=== PATIENT | female | born 1950 | race Caucasian/White ===

== ENCOUNTER → 2022-04-27 | Day surgery (SDC) | payer MEDICARE, OTHER ==
[~2022-04-27] MED LIST: ARIMIDEX1 MG PO; ATORVASTATIN CA20 MG PO; BALANCED SALT SOLN (OPTH) 15 ML BTL IO ONE; BUPROPION HCL100 MG PO; CELEBREX200 MG PO; LANSOPRAZOLE30 MG PO; LIBRAX CAPSULE1 EACH PO; LIDOCAINE 2% /EPINEPHRINE 20 ML SDV INJ ONE; LOSARTAN POTAS100 MG PO; METFORMIN HCL500 MG PO; NEOMYCIN/POLYMYXIN/DEX (OPTH) 3.5 GM TUBE ONE; POVIDONE IODINE 5% (OPTH) 30 ML BTL ONE; SERTRALINE HCL100 MG PO; VITAMIN B122500 MCG PO; VITAMIN C500 MG PO; VITAMIN D362.5 MCG PO
[2022-04-27 13:45] VITALS: BP 143/69
== END | disposition home or self-care (01) ==
LOC: OR 10:12
PROVIDERS: ATTEND Ophthalmology
DX: H02.834 Dermatochalasis of left upper eyelid (principal); H02.831 Dermatochalasis of right upper eyelid; I10 Essential (primary) hypertension; E78.5 Hyperlipidemia, unspecified; K21.9 Gastro-esophageal reflux disease without esophagitis; R06.83 Snoring; Z88.6 Allergy status to analgesic agent; Z79.84 Long term (current) use of oral hypoglycemic drugs; Z79.899 Other long term (current) drug therapy; Z68.33 Body mass index [BMI] 33.0-33.9, adult
CPT/HCPCS: 15823; 36415; 82948; J2001